=== PATIENT | male | born 1955 | race Caucasian/White ===

== ENCOUNTER 2018-07-24 05:09 | Inpatient (IN) | payer MEDICARE, OTHER ==
[2018-07-20 14:23] LABS: CLARITY,URINE CLEAR (Clear); COLOR,URINE STRAW (Yellow); GLUCOSE, URINE >=1000 mg/dl (Neg); KETONES,URINE NEGATIVE (Neg); LEUKOCYTE ESTERASE ,URINE NEGATIVE (Neg); NITRITES, URINE NEGATIVE (Neg); OCCULT BLOOD,URINE NEGATIVE (Neg); PH,URINE 5.5 (4.8-8.0); PROTEIN,URINE NEGATIVE (Neg); UROBILINOGEN,URINE 0.2 E.U/dL (0.2-1.0)
[2018-07-20 14:32] LABS: UA COLLECTION TYPE VOIDED
[2018-07-20 14:33] LABS: BACTERIA,URINE FEW /HPF (Neg); RBC,URINE 0-2 /HPF (0-2); SQUAMOUS EPITHELIAL CELL,UR FEW /LPF (FEW); WBC,URINE 0-4 /HPF (0-4)
[2018-07-20 16:07] LABS: BASOPHILS # (AUTO) 0.1 X10'3 (0-0.2); BASOPHILS % (AUTO) 0.5 % (0-1); EOSINOPHILS # (AUTO) 0.3 X10'3 (0-0.9); EOSINOPHILS % (AUTO) 2.3 % (0-6); LYMPHOCYTES # (AUTO) 3.2 X10'3 (1.1-4.8); LYMPHOCYTES % (AUTO) 28.2 % (21-51); MEAN CORPUSCULAR HEMOGLOBIN 29.2 PG (27.0-31.0); MEAN CORPUSCULAR VOLUME 91.1 FL (78-98); MEAN PLATELET VOLUME 10.1 FL (7.4-10.4); MONOCYTES # (AUTO) 1.8 X10'3 (0-0.9); MONOCYTES % (AUTO) 15.9 % (2-12); NEUTROPHILS % (AUTO) 53.1 % (42-75); PRE OP HEMATOCRIT 44.5 % (42.0-52.0); PRE OP HEMOGLOBIN 14.2 g/dL (14.0-17.9); PRE OP PLATELET COUNT 363 X10'3 (140-440); RED BLOOD COUNT 4.88 X10'6 (4.70-6.10); RED CELL DISTRIBUTION WIDTH 15.9 % (11.5-14.5)
[2018-07-20 16:20] LABS: HEMOGLOBIN A1C 11.5 % (4.5-6.2)
[2018-07-20 16:26] LABS: ALBUMIN 3.5 G/DL (3.4-5.0); ALBUMIN/GLOBULIN RATIO 0.8 (1.1-1.5); ALKALINE PHOSPHATASE 94 IU/L (46-116); BLOOD UREA NITROGEN 23 MG/DL (7-18); BUN/CREATININE RATIO 31.9 (5.4-32.0); CALCIUM 9.2 MG/DL (8.5-10.1); CHLORIDE 101 MMOL/L (99-107); CREATININE 0.72 MG/DL (0.60-1.10); PRE OP ALT 22 U/L (30-65); PRE OP ANION GAP 8 (8-16); PRE OP AST 15 U/L (10-37); PRE OP BILIRUB, TOTAL 0.7 MG/DL (0.0-1.0); PRE OP POTASSIUM 4.1 MMOL/L (3.4-5.1); PRE OP SODIUM 136 MMOL/L (135-145); TOTAL CARBON DIOXIDE 27.5 MMOL/L (24-32); TOTAL PROTEIN 7.9 G/DL (6.4-8.2); eGFR > 90 ML/MIN
[2018-07-20 16:27] LABS: PRE OP GLUCOSE 223 MG/DL (70-104)
[2018-07-20 16:33] LABS: PRE OP PROTIME 10.3 SECONDS (9.0-12.0)
[~2018-07-24] VITALS: Ht 162.6 cm; Wt 106.2 kg
[2018-07-24] VITALS (18 sets, daily range): BP systolic 104–153; BP diastolic 41–81
[~2018-07-24 05:09] MED LIST: ATOR40TA PO; CLOP75TA33 PO; ESCI20TA38 PO; FENO160T37 PO; FURO-150 PO; INSU100I31 SQ; LIDOcaine 1% (10mg/ml) 2ml vial ONE; METF500T7 PO; METO50TA17 PO; PANT-47 PO; PIOG45TA65 PO; POTA20TA10 PO; SOTA80TA73 PO; ringers solution, lacted 1,000 ML IV SCH
[2018-07-24] MEDS ORDERED: ceFAZolin 1000mg inj ONE (05:12)
[2018-07-24] MEDS ORDERED: metoprolol tartrate 12.5mg (1/2 tablet) PO ONE (05:30)
[2018-07-24] MEDS ORDERED: LORazepam 2 mg/ml vial IV ONE (05:30)
[2018-07-24] MEDS ORDERED: mupirocin 2% nasal ointment 1gm UD NS ONE (05:30)
[2018-07-24] MEDS ORDERED: DOCUMENT DATE & TIME OF BETA-BLOCKER PO ONE (05:30)
[2018-07-24] MEDS ORDERED: cefazolin/dext.iso 2gm/100 ML IV ONE (05:30)
[2018-07-24] MEDS ORDERED: famotidine 20mg tablet PO ONE (05:30)
[2018-07-24] MEDS ORDERED: dextrose 50%-water 50ml dispensing syringe IV PRN ×2 (05:30→11:30)
[2018-07-24] MEDS ORDERED: vancomycin inj 1,500 MG in normal saline 300ml IV soln IV ONE (05:30)
[2018-07-24] MEDS: insulin regular, human 100 UNIT in normal saline 100ml IV soln 99 ML IV SCH ×2 (05:30)
[2018-07-24] MEDS ORDERED: LIDOcaine 1% (10mg/ml) 2ml vial ONE (05:51)
[2018-07-24] MEDS ORDERED: nitroGLYCERIN in D5W 50mg/250ml (Tridil) infusion IV ONE (06:45)
[2018-07-24] MEDS ORDERED: sevoflurane 250ml liquid IH ONE (06:45)
[2018-07-24] MEDS ORDERED: protamine sulf. 10mg/ml inj. IV ONE (06:45)
[2018-07-24] MEDS ORDERED: MIDAZolam 1mg/ml 10ml vial ONE (06:54)
[2018-07-24] MEDS ORDERED: fentaNYL /PF 50mcg/ml 5ml ampule ONE ×5 (06:55→08:49)
[2018-07-24] MEDS ORDERED: phenylephrine 10mg/ml inj. ONE ×2 (06:57→12:00)
[2018-07-24] MEDS ORDERED: pancuronium br 1mg/ml inj IV ONE (06:57)
[2018-07-24] MEDS ORDERED: etomidate 2mg/ml inj. ONE (06:57)
[2018-07-24 08:16] LABS: ABG BASE EXCESS -2.2 mmol/L (-2.0-3.0); ABG HCO3 22.6 mmol/L (22.0-26.0); ABG OXYGEN SATURATION 99.1 % (95-98); ABG PCO2 38.8 mmHg (35.0-45.0); ABG PH 7.383 (7.350-7.450); ABG PO2 200.2 mmHg (60.0-100.0); CL (ABG) 97 mmol/L (99-107); FCOHb 0.8 % (0.5-1.5); FMetHb 0.1 % (0.3-1.12); FO2Hb 98.2 % (94-100); GLUCOSE (ABG) 277 mg/dl (70-105); IONIZED CA (ABG) 1.13 mmol/L (1.03-1.32); K (ABG) 3.8 mmol/L (3.3-5.1); NA (ABG) 128 mmol/L (135-145); TOTAL HEMOGLOBIN 13.2 G/dl (14.0-18.0)
[2018-07-24] MEDS ORDERED: papaverine 30 mg/ml 2ml inj. IA ONE (08:26)
[2018-07-24] MEDS ORDERED: heparin 10,000 units/1 ML INJ IR ONE (08:26)
[2018-07-24 08:46] LABS: ACT @ 1.70 U 228 SEC (193-297); ACT @ 2.84 U 313 SEC (260-420); BASELINE ACT 114 SEC (101-148)
[2018-07-24 08:50] LABS: ABG HCO3 26.2 mmol/L (22.0-26.0); ABG OXYGEN SATURATION 93.9 % (95-98); ABG PCO2 (T) 43.5 mmHg (35.0-48.0); ABG PH (T) 7.397 (7.350-7.450); ABG PO2 (T) 71.1 mmHg (83-108); ALLEN'S TEST Positive; FCOHb 1.2 % (0.5-1.5); FMetHb 0.1 % (0.3-1.12); FO2Hb 92.7 % (94-100); TOTAL HEMOGLOBIN 14.5 G/dl (14.0-18.0)
[2018-07-24 09:20] LABS: ABG BASE EXCESS 3.2 mmol/L (-2.0-3.0); ABG HCO3 28.6 mmol/L (22.0-26.0); ABG OXYGEN SATURATION 99.5 % (95-98); ABG PCO2 47.2 mmHg (35.0-45.0); CL (ABG) 101 mmol/L (99-107); FCOHb 0.5 % (0.5-1.5); FMetHb 0.3 % (0.3-1.12); FO2Hb 98.7 % (94-100); GLUCOSE (ABG) 207 mg/dl (70-105); IONIZED CA (ABG) 1.04 mmol/L (1.03-1.32); K (ABG) 4.5 mmol/L (3.3-5.1); NA (ABG) 133 mmol/L (135-145); TOTAL HEMOGLOBIN 10.4 G/dl (14.0-18.0)
[2018-07-24 09:35] LABS: ABG BASE EXCESS VENOUS 2.9 mmol/L; ABG HCO3 VENOUS 29.1 mmol/L; ABG PCO2 VENOUS 51.9 mmHg; ABG PO2 VENOUS 48.4 mmHg; CL (ABG) 102 mmol/L (99-107); FCOHb VENOUS 1.2 %; FHHb VENOUS 16.3 %; FMetHb VENOUS 0.3 %; FO2Hb VENOUS 82.2 %; GLUCOSE (ABG) 207 mg/dl (70-105); IONIZED CA (ABG) 1.09 mmol/L (1.03-1.32); K (ABG) 4.1 mmol/L (3.3-5.1); NA (ABG) 135 mmol/L (135-145); TOTAL HEMOGLOBIN 10.9 G/dl (14.0-18.0)
[2018-07-24 10:00] LABS: ABG BASE EXCESS 1.7 mmol/L (-2.0-3.0); ABG HCO3 25.3 mmol/L (22.0-26.0); ABG OXYGEN SATURATION 99.5 % (95-98); ABG PH 7.465 (7.350-7.450); CL (ABG) 103 mmol/L (99-107); FCOHb 0.8 % (0.5-1.5); FMetHb 0.3 % (0.3-1.12); FO2Hb 98.4 % (94-100); GLUCOSE (ABG) 185 mg/dl (70-105); IONIZED CA (ABG) 1.09 mmol/L (1.03-1.32); K (ABG) 3.9 mmol/L (3.3-5.1); NA (ABG) 136 mmol/L (135-145); TOTAL HEMOGLOBIN 10.7 G/dl (14.0-18.0)
[2018-07-24 10:21] LABS: ABG BASE EXCESS 3.2 mmol/L (-2.0-3.0); ABG HCO3 27.9 mmol/L (22.0-26.0); ABG OXYGEN SATURATION 99.1 % (95-98); ABG PCO2 43.3 mmHg (35.0-45.0); ABG PH 7.427 (7.350-7.450); ABG PO2 318.1 mmHg (60.0-100.0); CL (ABG) 100 mmol/L (99-107); FCOHb 0.4 % (0.5-1.5); FMetHb 0.2 % (0.3-1.12); FO2Hb 98.5 % (94-100); GLUCOSE (ABG) 167 mg/dl (70-105); IONIZED CA (ABG) 1.47 mmol/L (1.03-1.32); K (ABG) 4.4 mmol/L (3.3-5.1); NA (ABG) 131 mmol/L (135-145); TOTAL HEMOGLOBIN 9.6 G/dl (14.0-18.0)
[2018-07-24 10:45] LABS: ABG BASE EXCESS VENOUS 3.2 mmol/L; ABG HCO3 VENOUS 28.3 mmol/L; ABG PCO2 VENOUS 45.5 mmHg; ABG PO2 VENOUS 38.3 mmHg; CL (ABG) 103 mmol/L (99-107); FCOHb VENOUS 0.9 %; FMetHb VENOUS 0.4 %; FO2Hb VENOUS 73.7 %; GLUCOSE (ABG) 165 mg/dl (70-105); IONIZED CA (ABG) 1.24 mmol/L (1.03-1.32); NA (ABG) 136 mmol/L (135-145); TOTAL HEMOGLOBIN 10.3 G/dl (14.0-18.0)
[2018-07-24] MEDS ORDERED: DOPamine 400mg/D5W 250ml 250 ML IV PRN (11:29)
[2018-07-24] MEDS ORDERED: niCARDipine-NS 40mg/200ml IVPB 200 ML IV PRN (11:29)
[2018-07-24] MEDS: sodium chloride 0.45% 1,000 ML IV SCH (11:29)
[2018-07-24] MEDS ORDERED: nitroGLYCERIN-Tridil 50MG/D5W 250 ML IV PRN (11:29)
[2018-07-24] MEDS ORDERED: magnesium 4gm in 100ml NS 100 ML IV PRN (11:30)
[2018-07-24] MEDS ORDERED: magnesium 2GM in 50ml NS 50 ML IV PRN (11:30)
[2018-07-24] MEDS ORDERED: ondansetron/PF 4mg/2ml inj IV PRN (11:30)
[2018-07-24] MEDS ORDERED: acetaminophen 325mg tablet PO PRN (11:30)
[2018-07-24] MEDS ORDERED: pantoprazole 40 MG vial IV ONE (11:30)
[2018-07-24] MEDS ORDERED: insulin regular, human inj. 100 UNITS in normal saline 100ml IV soln 100 ML IV SCH ×2 (11:30)
[2018-07-24] MEDS ORDERED: normal saline 250ml IV soln 250 ML IV PRN (11:30)
[2018-07-24] MEDS ORDERED: sodium phosphate inj. 15 MMOL in dextrose 5%-water 150 ML IV PRN (11:30)
[2018-07-24] MEDS ORDERED: metoclopramide 5 mg/ml inj IV PRN (11:30)
[2018-07-24] MEDS ORDERED: magnesium hydroxide 30ml (MOM) UD suspension PO PRN (11:30)
[2018-07-24] MEDS ORDERED: Neutra Phos packet PO PRN (11:30)
[2018-07-24] MEDS ORDERED: albumin (Human) 5% 250ml 250 ML IV PRN (11:30)
[2018-07-24] MEDS ORDERED: potassium Cl 20mEq/100mL bag 100 ML IV PRN ×2 (11:30)
[2018-07-24] MEDS ORDERED: sodium phosphate inj. 30 MMOL in dextrose 5%-water 250 ML IV PRN (11:30)
[2018-07-24 11:46] LABS: ABG BASE EXCESS 0.9 mmol/L (-2.0-3.0); ABG OXYGEN SATURATION 98.9 % (95-98); ABG PCO2 (T) 43.5 mmHg (35.0-48.0); ABG PH (T) 7.395 (7.350-7.450); ABG PO2 (T) 184.4 mmHg (83-108); FCOHb 0.9 % (0.5-1.5); FMetHb 0.4 % (0.3-1.12); FO2Hb 97.6 % (94-100); MINUTE VOLUME 6 L/min; PEEP 5 cm H2O; RESPIRATORY RATE 12 b/min; RESPIRATORY RATE (OBSERVED) 12 b/min; TIDAL VOLUME 500 mL; TOTAL HEMOGLOBIN 13.6 G/dl (14.0-18.0)
[2018-07-24 11:57] LABS: BASOPHILS # (AUTO) 0.1 X10'3 (0-0.2); BASOPHILS % (AUTO) 0.3 % (0-1); EOSINOPHILS # (AUTO) 0.3 X10'3 (0-0.9); EOSINOPHILS % (AUTO) 1.4 % (0-6); HEMATOCRIT 40.1 % (42.0-52.0); HEMOGLOBIN 12.8 g/dl (14.0-17.9); LYMPHOCYTES # (AUTO) 2.4 X10'3 (1.1-4.8); LYMPHOCYTES % (AUTO) 12.4 % (21-51); MEAN CORPUSCULAR HEMOGLOBIN 29.1 PG (27.0-31.0); MEAN CORPUSCULAR HGB CONC 31.8 % (33.0-36.5); MEAN CORPUSCULAR VOLUME 91.3 FL (78-98); MEAN PLATELET VOLUME 9.3 FL (7.4-10.4); MONOCYTES # (AUTO) 3.2 X10'3 (0-0.9); MONOCYTES % (AUTO) 16.3 % (2-12); NEUTROPHILS # (AUTO) 13.7 X10'3 (1.8-7.7); NEUTROPHILS % (AUTO) 69.6 % (42-75); PLATELET COUNT 155 X10'3 (140-440); RED CELL DISTRIBUTION WIDTH 16.1 % (11.5-14.5); WHITE BLOOD COUNT 19.7 X10'3 (4.5-11.0)
[2018-07-24] MEDS ORDERED: heparin 1,000 units/ml 10ml inj ONE (12:00)
[2018-07-24] MEDS ORDERED: potassium Cl 2 mEq/ml inj IV ONE (12:00)
[2018-07-24] MEDS ORDERED: methylPREDNISolone sod. succ. 500mg inj ONE (12:00)
[2018-07-24] MEDS ORDERED: heparin 10,000 units/1 ML INJ ONE ×2 (12:00)
[2018-07-24] MEDS ORDERED: aminocaproic acid 250 MG/1 ML inj. ONE ×2 (12:00)
[2018-07-24] MEDS ORDERED: LIDOcaine 2% (20 mg/ml) 5ml cardiac syringe ONE (12:00)
[2018-07-24] MEDS ORDERED: calcium chloride 100 MG/1 ML inj IV ONE (12:00)
[2018-07-24] MEDS ORDERED: sodium bicarbonate (8.4%) 1 mEq/ml syringe ONE (12:00)
[2018-07-24] MEDS ORDERED: papaverine 30 mg/ml 2ml inj. ONE (12:00)
[2018-07-24] MEDS ORDERED: albumin (Human) 5% 250ml BOTTLE IV ONE (12:00)
[2018-07-24] MEDS ORDERED: magnesium sulf 1 GM/2 ML ONE (12:00)
[2018-07-24 12:01] LABS: ALANINE AMINOTRANSFERASE 16 U/L (12-78); ALBUMIN 3.1 G/DL (3.4-5.0); ALBUMIN/GLOBULIN RATIO 1.2 (1.1-1.5); ALKALINE PHOSPHATASE 56 IU/L (46-116); ANION GAP 10 (8-16); ASPARTATE AMINO TRANSFERASE 29 U/L (10-37); BILIRUBIN,TOTAL 1.2 MG/DL (0.1-1.0); BLOOD UREA NITROGEN 18 MG/DL (7-18); BUN/CREATININE RATIO 25.4 (5.4-32.0); CALCIUM 8.3 MG/DL (8.5-10.1); CHLORIDE 105 MMOL/L (99-107); CREATININE 0.71 MG/DL (0.60-1.10); GLUCOSE 136 MG/DL (70-104); INR 1.2 INR; MAGNESIUM 2.8 MG/DL (1.5-2.4); PARTIAL THROMBOPLASTIN TIME 26 SECONDS (22-32); PHOSPHORUS 1.7 MG/DL (2.3-4.5); POTASSIUM 3.5 MMOL/L (3.5-5.1); PROTHROMBIN TIME 11.9 SECONDS (9.0-12.0); SODIUM 142 MMOL/L (135-145); TOTAL PROTEIN 5.6 G/DL (6.4-8.2); eGFR > 90 ML/MIN
[2018-07-24 12:31] LABS: ANISOCYTOSIS 1+; BANDS% (MANUAL) 13 % (0-10); EOSINOPHILS % (MANUAL) 1 % (0-6); HYPOCHROMASIA 1+; LYMPHOCYTES % (MANUAL) 12 % (21-51); MONOCYTES % (MANUAL) 14 % (2-12); NEUTROPHILS % (MANUAL) 60 % (42-75); PLATELET ESTIMATE NORMAL; POIKILOCYTOSIS 1+; POLYCHROMASIA FEW; TOTAL CELLS COUNTED 100
[2018-07-24 12:32] LABS: ACANTHOCYTES FEW; SCHISTOCYTES FEW; TARGET CELLS FEW
[2018-07-24] MEDS ORDERED: potassium phosphate inj 15 MMOL in normal saline 250ml IV soln 245 ML IV ONE (12:35)
[2018-07-24] MEDS: morphine 4 MG/ML inj SYRINge IV PRN ×5 (12:36→23:56)
[2018-07-24] MEDS: potassium Cl 20mEq/100mL bag 100 ML IV PRN ×2 (12:38→13:59)
--- NOTE | 2018-07-24 12:42 | NUR ---
CABG consult received. Will need ed once stable post-op prior to d/c. Addendum: 07/24/18 at [address] Amended: Links added.
[2018-07-24] MEDS: insulin Lispro (HumaLOG) vial - multi-dose SQ SCH ×2 (12:48→12:49)
[2018-07-24 12:51] LABS: ABG BASE EXCESS 0.1 mmol/L (-2.0-3.0); ABG HCO3 24.1 mmol/L (22.0-26.0); ABG OXYGEN SATURATION 98.7 % (95-98); ABG PCO2 (T) 37.3 mmHg (35.0-48.0); ABG PH (T) 7.429 (7.350-7.450); ABG PO2 (T) 170.9 mmHg (83-108); FCOHb 0.5 % (0.5-1.5); FMetHb 0.1 % (0.3-1.12); FO2Hb 98.1 % (94-100); MINUTE VOLUME 8 L/min; PEEP 5 cm H2O; RESPIRATORY RATE 12 b/min; RESPIRATORY RATE (OBSERVED) 12 b/min; TIDAL VOLUME 650 mL; TOTAL HEMOGLOBIN 13.6 G/dl (14.0-18.0)
[2018-07-24] MEDS: ceFAZolin 1GM/D5W- ADD-VANTAGE 50 ML IV SCH (16:22)
[2018-07-24 17:00] LABS: ABG BASE EXCESS -1.4 mmol/L (-2.0-3.0); ABG HCO3 24.2 mmol/L (22.0-26.0); ABG OXYGEN SATURATION 96.9 % (95-98); ABG PCO2 (T) 43.8 mmHg (35.0-48.0); ABG PO2 (T) 93.7 mmHg (83-108); FCOHb 0.9 % (0.5-1.5); FMetHb 0.2 % (0.3-1.12); FO2Hb 95.8 % (94-100); MINUTE VOLUME 8 L/min; PEEP 5 cm H2O; RESPIRATORY RATE (OBSERVED) 20 b/min; TOTAL HEMOGLOBIN 13.3 G/dl (14.0-18.0)
[2018-07-24 18:37] LABS: BASOPHILS # (AUTO) 0.1 X10'3 (0-0.2); BASOPHILS % (AUTO) 0.5 % (0-1); EOSINOPHILS % (AUTO) 0 % (0-6); HEMATOCRIT 39.9 % (42.0-52.0); HEMOGLOBIN 12.9 g/dl (14.0-17.9); LYMPHOCYTES % (AUTO) 6.4 % (21-51); MEAN CORPUSCULAR HEMOGLOBIN 29.6 PG (27.0-31.0); MEAN CORPUSCULAR HGB CONC 32.4 % (33.0-36.5); MEAN CORPUSCULAR VOLUME 91.2 FL (78-98); MONOCYTES # (AUTO) 1.8 X10'3 (0-0.9); MONOCYTES % (AUTO) 11.3 % (2-12); NEUTROPHILS # (AUTO) 13.3 X10'3 (1.8-7.7); NEUTROPHILS % (AUTO) 81.8 % (42-75); PLATELET COUNT 161 X10'3 (140-440); RED BLOOD COUNT 4.38 X10'6 (4.70-6.10); RED CELL DISTRIBUTION WIDTH 15.9 % (11.5-14.5); WHITE BLOOD COUNT 16.2 X10'3 (4.5-11.0)
--- NOTE | 2018-07-24 18:45 | NUR ---
Received report on patient in room 2043 from Nela, RN. Pt awake and alert, slightly confused at times, speech is clear, denies numbness and tingling, moving all extremities. Insulin infusing at 15 per insulin gtt protocol to keep glucose levels between 110 and 150. Pt on 4L nasal cannula maintaining O2 sat greater than 93. Chest tubes to suction at 20 cm with serosanguinous output, symmetrical rise and fall of chest cavity with no crepitus noted, dressings are clean, dry, and intact. On camera storage clerk with arterial line, CVP, and PA line pressures monitored. Gutierres cath to gravity drainage with optimal urine output. Bowel sounds hypoactive, pt only tolerating ice chips at this time, will advance to small sips of water as tolerated. See assessment record.
[2018-07-24 18:53] LABS: ALBUMIN 3.5 G/DL (3.4-5.0); ANION GAP 11 (8-16); BLOOD UREA NITROGEN 18 MG/DL (7-18); BUN/CREATININE RATIO 23.4 (5.4-32.0); CHLORIDE 107 MMOL/L (99-107); CREATININE 0.77 MG/DL (0.60-1.10); GLUCOSE 161 MG/DL (70-104); MAGNESIUM 2.1 MG/DL (1.5-2.4); PHOSPHORUS 3.1 MG/DL (2.3-4.5); POTASSIUM 4.3 MMOL/L (3.5-5.1); SODIUM 143 MMOL/L (135-145); TOTAL CARBON DIOXIDE 25.5 MMOL/L (24-32); eGFR > 90 ML/MIN
[2018-07-24] MEDS: docusate sod 100mg capsule PO SCH (19:50)
[2018-07-24] MEDS: mupirocin 2% nasal ointment 1gm UD NS SCH (19:53)
[2018-07-24] MEDS: vancomycin/NS 1 GM ADD-VANTAGE 250 ML IV SCH (19:53)
--- NOTE | 2018-07-24 21:15 | NUR ---
Pt now tolerating sips of water
--- NOTE | 2018-07-24 22:35 | NUR ---
Pt getting hypertensive into the 140-150's systolically, re-started Nitro through R IJ CVL to maintain systolic <140.
[2018-07-25] VITALS (24 sets, daily range): BP systolic 101–162; BP diastolic 56–91
[2018-07-25] MEDS: ceFAZolin 1GM/D5W- ADD-VANTAGE 50 ML IV SCH ×4 (00:08→23:54)
[2018-07-25] MEDS: morphine 4 MG/ML inj SYRINge IV PRN ×5 (00:48→11:02)
[2018-07-25] MEDS: insulin regular, human 100 UNIT in normal saline 100ml IV soln 99 ML IV SCH ×10 (01:01→23:51)
[2018-07-25 03:20] LABS: BASOPHILS % (AUTO) 0.2 % (0-1); EOSINOPHILS % (AUTO) 0 % (0-6); HEMATOCRIT 38.3 % (42.0-52.0); HEMOGLOBIN 12.5 g/dl (14.0-17.9); LYMPHOCYTES # (AUTO) 1.4 X10'3 (1.1-4.8); LYMPHOCYTES % (AUTO) 7.2 % (21-51); MEAN CORPUSCULAR HEMOGLOBIN 29.6 PG (27.0-31.0); MEAN CORPUSCULAR HGB CONC 32.5 % (33.0-36.5); MEAN CORPUSCULAR VOLUME 90.9 FL (78-98); MEAN PLATELET VOLUME 10.1 FL (7.4-10.4); MONOCYTES # (AUTO) 3.4 X10'3 (0-0.9); MONOCYTES % (AUTO) 17.1 % (2-12); NEUTROPHILS # (AUTO) 15.1 X10'3 (1.8-7.7); NEUTROPHILS % (AUTO) 75.5 % (42-75); PLATELET COUNT 159 X10'3 (140-440); RED BLOOD COUNT 4.22 X10'6 (4.70-6.10); RED CELL DISTRIBUTION WIDTH 15.9 % (11.5-14.5)
[2018-07-25 03:34] LABS: ALANINE AMINOTRANSFERASE 20 U/L (12-78); ALBUMIN 3.3 G/DL (3.4-5.0); ALBUMIN/GLOBULIN RATIO 1.1 (1.1-1.5); ALKALINE PHOSPHATASE 40 IU/L (46-116); ANION GAP 7 (8-16); ASPARTATE AMINO TRANSFERASE 65 U/L (10-37); BILIRUBIN,TOTAL 1.3 MG/DL (0.1-1.0); BLOOD UREA NITROGEN 15 MG/DL (7-18); BUN/CREATININE RATIO 20.8 (5.4-32.0); CHLORIDE 108 MMOL/L (99-107); CREATININE 0.72 MG/DL (0.60-1.10); GLUCOSE 123 MG/DL (70-104); PHOSPHORUS 3.4 MG/DL (2.3-4.5); POTASSIUM 4.1 MMOL/L (3.5-5.1); SODIUM 142 MMOL/L (135-145); TOTAL PROTEIN 6.3 G/DL (6.4-8.2); eGFR > 90 ML/MIN
[2018-07-25 03:49] LABS: INR 1.1 INR; PARTIAL THROMBOPLASTIN TIME 26 SECONDS (22-32); PROTHROMBIN TIME 11.1 SECONDS (9.0-12.0)
[2018-07-25 04:04] LABS: TOTAL CELLS COUNTED 100
[2018-07-25 04:06] LABS: ANISOCYTOSIS 1+; PLATELET ESTIMATE NORMAL
[2018-07-25 04:07] LABS: BURR CELLS FEW; SCHISTOCYTES FEW; TARGET CELLS FEW
[2018-07-25] MEDS: HYDROcodone/acetaminophen 10/325mg tab PO PRN ×3 (05:08→17:09)
--- NOTE | 2018-07-25 05:45 | NUR ---
Pt up in chair for morning X-ray, tolerated well
--- NOTE | 2018-07-25 06:12 | NUR ---
Problems reprioritized. Patient report given, questions answered & plan of care reviewed with EFREN Pascal.
[2018-07-25] MEDS ORDERED: dextrose 50%-water 50ml dispensing syringe IV PRN ×2 (07:55)
[2018-07-25] MEDS ORDERED: glucagon, human recombinant 1mg kit SUBCUT PRN (07:55)
[2018-07-25] MEDS ORDERED: dextrose ORAL solution 15 GM/59 ML bottle PO PRN ×2 (07:55)
[2018-07-25] MEDS ORDERED: metoprolol tartrate 12.5mg (1/2 tablet) PO SCH (08:00)
[2018-07-25] MEDS ORDERED: atorvastatin 10mg tablet PO SCH (08:00)
[2018-07-25] MEDS ORDERED: escitalopram 20mg tablet PO SCH (08:00)
[2018-07-25] MEDS: citalopram 20mg tablet PO SCH (09:21)
[2018-07-25] MEDS: atorvastatin 20mg tablet PO SCH (09:21)
[2018-07-25] MEDS: docusate sod 100mg capsule PO SCH ×2 (09:22→20:52)
[2018-07-25] MEDS: aspirin 325mg tablet, delayed-release (Ecotrin) PO SCH (09:22)
[2018-07-25] MEDS: metoprolol tartrate 50mg tablet PO SCH ×2 (09:22→20:51)
[2018-07-25] MEDS: vancomycin/NS 1 GM ADD-VANTAGE 250 ML IV SCH ×2 (09:22→20:53)
[2018-07-25] MEDS: mupirocin 2% nasal ointment 1gm UD NS SCH ×2 (09:22→21:12)
[2018-07-25] MEDS: insulin Lispro (HumaLOG) vial - multi-dose SQ SCH ×2 (09:37→13:33)
--- NOTE | 2018-07-25 14:17 | NUR ---
DM/CABG consult. Patient has h/o DM with A1c of 11.5; Patient is s/p CABG, replacement aortic valve with grafting and ligation of atrial appendage on 07/24. Diet was advanced to no concentrated sweets and carb controlled. Patient is confused s/p extubation and not appropriate for bedside education today. When alert patient will need both written DM and post CABG education handout with verbal review. Recommend: 1. Continue carb controlled, no concentrated sweets diet 2. Continue bowel care 3. Provide written and verbal education prior to discharge 4. Weight per rx Addendum: 07/25/18 at [address] Amended: Links added.
[2018-07-25] MEDS ORDERED: insulin glargine (Lantus) pen - multi-dose SQ SCH ×2 (21:00)
[2018-07-25] MEDS: insulin glargine (Lantus) pen - multi-dose SQ SCH (21:21)
[2018-07-25] MEDS ORDERED: amiodarone 150mg/dext, iso-os 100 ML IV ONE (22:00)
[2018-07-25] MEDS ORDERED: amiodarone/D5 360MG/200ML BAG 200 ML IV ONE (22:02)
[2018-07-25] MEDS: amiodarone/D5 360MG/200ML BAG 200 ML IV SCH (22:16)
[2018-07-26] VITALS (22 sets, daily range): BP systolic 94–138; BP diastolic 51–77
[2018-07-26] MEDS: insulin regular, human 100 UNIT in normal saline 100ml IV soln 99 ML IV SCH ×24 (00:43→22:35)
[2018-07-26] MEDS: HYDROcodone/acetaminophen 10/325mg tab PO PRN ×3 (01:59→22:39)
[2018-07-26] MEDS: morphine 4 MG/ML inj SYRINge IV PRN ×2 (02:45→05:18)
[2018-07-26 02:59] LABS: HEMATOCRIT 38.8 % (42.0-52.0); HEMOGLOBIN 12.1 g/dl (14.0-17.9); MEAN CORPUSCULAR HEMOGLOBIN 28.6 PG (27.0-31.0); MEAN CORPUSCULAR HGB CONC 31.3 % (33.0-36.5); MEAN CORPUSCULAR VOLUME 91.5 FL (78-98); MEAN PLATELET VOLUME 10.5 FL (7.4-10.4); PLATELET COUNT 154 X10'3 (140-440); RED BLOOD COUNT 4.24 X10'6 (4.70-6.10); RED CELL DISTRIBUTION WIDTH 15.9 % (11.5-14.5)
[2018-07-26 03:07] LABS: WHITE BLOOD COUNT 25.3 X10'3 (4.5-11.0)
[2018-07-26 03:15] LABS: ALBUMIN 3.1 G/DL (3.4-5.0); ANION GAP 7 (8-16); BLOOD UREA NITROGEN 13 MG/DL (7-18); BUN/CREATININE RATIO 20.3 (5.4-32.0); CALCIUM 8.3 MG/DL (8.5-10.1); CHLORIDE 101 MMOL/L (99-107); CREATININE 0.64 MG/DL (0.60-1.10); GLUCOSE 120 MG/DL (70-104); MAGNESIUM 2.1 MG/DL (1.5-2.4); PHOSPHORUS 2.4 MG/DL (2.3-4.5); POTASSIUM 4.5 MMOL/L (3.5-5.1); SODIUM 138 MMOL/L (135-145); TOTAL CARBON DIOXIDE 30.5 MMOL/L (24-32); eGFR > 90 ML/MIN
[2018-07-26 03:17] LABS: ANISOCYTOSIS 1+; BURR CELLS FEW; PLATELET ESTIMATE NORMAL; SCHISTOCYTES FEW; TARGET CELLS FEW; TOTAL CELLS COUNTED 100
[2018-07-26 03:18] LABS: LARGE PLATELETS FEW
[2018-07-26] MEDS: amiodarone/D5 360MG/200ML BAG 200 ML IV SCH ×3 (04:19→16:25)
--- NOTE | 2018-07-26 06:00 | NUR ---
Patient in room ICU 2043. I have received report from Meron SCHWARTZ and had the opportunity to ask questions and assume patient care. Addendum: 07/26/18 at 1246 by Prateek Henry RN Report received from Herberth SCHWARTZ not Meron SCHWARTZ
[2018-07-26] MEDS ORDERED: amiodarone 50MG/ML inj IV ONE (07:00)
[2018-07-26] MEDS ORDERED: furosemide 40mg/4ml inj IV ONE (07:00)
[2018-07-26] MEDS ORDERED: amiodarone 150mg/dext, iso-os 100 ML IV ONE (07:10)
[2018-07-26] MEDS: insulin glargine (Lantus) pen - multi-dose SQ SCH ×3 (08:00→19:38)
[2018-07-26] MEDS: mupirocin 2% nasal ointment 1gm UD NS SCH (08:39)
[2018-07-26] MEDS: metoprolol tartrate 50mg tablet PO SCH ×2 (08:40→19:43)
[2018-07-26] MEDS: aspirin 325mg tablet, delayed-release (Ecotrin) PO SCH (08:40)
[2018-07-26] MEDS: citalopram 20mg tablet PO SCH (08:40)
[2018-07-26] MEDS: atorvastatin 20mg tablet PO SCH (08:41)
[2018-07-26] MEDS: docusate sod 100mg capsule PO SCH ×2 (08:41→19:43)
[2018-07-26] MEDS: pantoprazole 40mg Tablet.DR PO SCH (08:42)
[2018-07-26] MEDS: sodium chloride 0.45% 1,000 ML IV SCH (11:36)
[2018-07-26] MEDS: insulin Lispro (HumaLOG) vial - multi-dose SQ SCH ×2 (13:26→19:39)
--- NOTE | 2018-07-26 17:31 | NUR ---
Paco ALVARES called and informed pt with 38.1 T. Pt post op day 2 and no orders were given. Pt requesting pm leg cramps. Pt ok to bring in home meds for this. Pt unsure if he can get someone to bring them in.
--- NOTE | 2018-07-26 18:20 | NUR ---
Problems reprioritized. Patient report given, questions answered & plan of care reviewed with Herberth SCHWARTZ.
[2018-07-27] VITALS (18 sets, daily range): BP systolic 102–145; BP diastolic 51–98
[2018-07-27] MEDS: insulin regular, human 100 UNIT in normal saline 100ml IV soln 99 ML IV SCH ×6 (00:23→05:09)
[2018-07-27 03:06] LABS: HEMATOCRIT 36.7 % (42.0-52.0); HEMOGLOBIN 11.8 g/dl (14.0-17.9); MEAN CORPUSCULAR HEMOGLOBIN 29.2 PG (27.0-31.0); MEAN CORPUSCULAR HGB CONC 32.1 % (33.0-36.5); PLATELET COUNT 149 X10'3 (140-440); RED BLOOD COUNT 4.04 X10'6 (4.70-6.10); RED CELL DISTRIBUTION WIDTH 16.6 % (11.5-14.5); WHITE BLOOD COUNT 22.3 X10'3 (4.5-11.0)
[2018-07-27 03:13] LABS: ALBUMIN 2.9 G/DL (3.4-5.0); ANION GAP 6 (8-16); BLOOD UREA NITROGEN 17 MG/DL (7-18); BUN/CREATININE RATIO 25.8 (5.4-32.0); CALCIUM 8.5 MG/DL (8.5-10.1); CHLORIDE 100 MMOL/L (99-107); CREATININE 0.66 MG/DL (0.60-1.10); GLUCOSE 154 MG/DL (70-104); MAGNESIUM 1.8 MG/DL (1.5-2.4); PHOSPHORUS 2.9 MG/DL (2.3-4.5); POTASSIUM 4.1 MMOL/L (3.5-5.1); SODIUM 138 MMOL/L (135-145); TOTAL CARBON DIOXIDE 31.7 MMOL/L (24-32); eGFR > 90 ML/MIN
[2018-07-27 03:40] LABS: PLATELET ESTIMATE NORMAL; TOTAL CELLS COUNTED 100
[2018-07-27 03:41] LABS: ACANTHOCYTES FEW; ANISOCYTOSIS 1+; BURR CELLS 1+; GIANT PLATELET FEW; LARGE PLATELETS FEW; POLYCHROMASIA FEW
[2018-07-27 03:42] LABS: TARGET CELLS FEW
[2018-07-27] MEDS: amiodarone/D5 360MG/200ML BAG 200 ML IV SCH ×2 (04:58→06:31)
--- NOTE | 2018-07-27 06:30 | NUR ---
Patient in room ICU 2043. I have received report from Herberth Gamboa RN and had the opportunity to ask questions and assume patient care.
[2018-07-27] MEDS: insulin glargine (Lantus) pen - multi-dose SQ SCH ×2 (08:00→20:27)
[2018-07-27] MEDS: HYDROcodone/acetaminophen 10/325mg tab PO PRN ×3 (08:35→23:49)
[2018-07-27] MEDS ORDERED: magnesium Cl slow-release 64mg tablet PO PRN (08:40)
[2018-07-27] MEDS ORDERED: potassium Cl 20 mEq SR tablet PO PRN ×2 (08:40)
[2018-07-27] MEDS ORDERED: magnesium 4gm in 100ml NS 100 ML IV PRN (08:40)
[2018-07-27] MEDS ORDERED: potassium Cl 40MEQ/NS 500ml 500 ML IV PRN ×2 (08:40)
[2018-07-27] MEDS ORDERED: magnesium 2GM in 50ml NS 50 ML IV PRN (08:40)
[2018-07-27] MEDS ORDERED: magnesium citrate 296ml oral solution PO ONE (08:40)
[2018-07-27] MEDS ORDERED: magnesium 2GM in 50ml NS 50 ML IV ONE (09:00)
[2018-07-27] MEDS ORDERED: magnesium 4gm in 100ml NS 100 ML IV ONE (09:00)
[2018-07-27] MEDS: docusate sod 100mg capsule PO SCH ×2 (09:04→20:34)
[2018-07-27] MEDS: metoprolol tartrate 50mg tablet PO SCH ×2 (09:04→20:00)
[2018-07-27] MEDS: pantoprazole 40mg Tablet.DR PO SCH (09:04)
[2018-07-27] MEDS: aspirin 325mg tablet, delayed-release (Ecotrin) PO SCH (09:05)
[2018-07-27] MEDS: atorvastatin 20mg tablet PO SCH (09:05)
[2018-07-27] MEDS: amiodarone 200mg tablet PO SCH ×2 (09:05→20:34)
[2018-07-27] MEDS: citalopram 20mg tablet PO SCH (09:12)
--- NOTE | 2018-07-27 10:21 | NUR ---
Dressing from chest surgery and leg wrap to left removed. Incisions are clean and dry with slight pink appearance. Also, new 20gauge PIV inserted to right forearm in preparation to remove central line once Mag replacement is complete. Amio drip turned off after PO med administered.
[2018-07-27] MEDS: insulin Lispro (HumaLOG) vial - multi-dose SQ SCH ×3 (10:45→20:32)
--- NOTE | 2018-07-27 11:47 | NUR ---
URINE CATHETER REMOVED 1147 Urine Catheter removed. Patient tolerated well.
--- NOTE | 2018-07-27 13:25 | NUR ---
Report called to receiving nurse Art RN. Patient ambulated from ICU to ACCE unit to his room 316 Belongings . Special Issues communicated to receiving nurse. All medication sent with patient. Informed nurse that BS is 200, however no treatment given yet. And that mag citrate is in patient chart.
--- NOTE | 2018-07-27 13:29 | NUR ---
Pt arrived to room 316. Pt oriented to room, on monitor system, call light within reach. Pt lunch and mag citrate given.
--- NOTE | 2018-07-27 18:48 | NUR ---
Problems reprioritized. Patient report given, questions answered & plan of care reviewed with EFREN Hein.
[2018-07-27] MEDS: potassium Cl 20 mEq SR tablet PO SCH (20:00)
[2018-07-27] MEDS: magnesium Cl slow-release 64mg tablet PO SCH (20:21)
[2018-07-27 20:44] LABS: CREATININE 0.93 MG/DL (0.60-1.10); eGFR 82 ML/MIN
[2018-07-28 03:00] VITALS: BP 112/50
[2018-07-28 05:21] LABS: HEMOGLOBIN 11.5 g/dl (14.0-17.9); MEAN CORPUSCULAR HEMOGLOBIN 29.1 PG (27.0-31.0); MEAN CORPUSCULAR HGB CONC 31.9 % (33.0-36.5); MEAN CORPUSCULAR VOLUME 91.3 FL (78-98); MEAN PLATELET VOLUME 10.1 FL (7.4-10.4); PLATELET COUNT 186 X10'3 (140-440); RED BLOOD COUNT 3.95 X10'6 (4.70-6.10); RED CELL DISTRIBUTION WIDTH 15.8 % (11.5-14.5)
[2018-07-28 05:40] LABS: ALBUMIN 2.7 G/DL (3.4-5.0); ANION GAP 4 (8-16); BLOOD UREA NITROGEN 18 MG/DL (7-18); BUN/CREATININE RATIO 22.5 (5.4-32.0); CALCIUM 8.4 MG/DL (8.5-10.1); CHLORIDE 103 MMOL/L (99-107); CHOLESTEROL 85 MG/DL (0-200); GLUCOSE 73 MG/DL (70-104); HDL CHOLESTEROL 42 MG/DL (35-60); LDL CHOLESTEROL 39 MG/DL (50-100); MAGNESIUM 2.1 MG/DL (1.5-2.4); POTASSIUM 4.2 MMOL/L (3.5-5.1); SODIUM 141 MMOL/L (135-145); TOTAL CARBON DIOXIDE 34.1 MMOL/L (24-32); TRIGLYCERIDES 58 MG/DL (20-135); eGFR > 90 ML/MIN
[2018-07-28 06:00] VITALS: BP 107/57
[2018-07-28] MEDS: magnesium Cl slow-release 64mg tablet PO SCH ×2 (07:04→20:00)
[2018-07-28] MEDS: K and/or MAG REPLACEMENT MC SCH (07:04)
[2018-07-28] MEDS: potassium Cl 20 mEq SR tablet PO SCH ×2 (07:04→20:00)
[2018-07-28] MEDS: insulin glargine (Lantus) pen - multi-dose SQ SCH ×2 (08:00→20:49)
[2018-07-28 08:04] LABS: TOTAL CELLS COUNTED 100
[2018-07-28 08:08] LABS: ANISOCYTOSIS 1+; PLATELET ESTIMATE NORMAL
[2018-07-28 08:09] LABS: HYPOCHROMASIA 1+; POLYCHROMASIA FEW
[2018-07-28 08:10] LABS: LARGE PLATELETS FEW; SCHISTOCYTES FEW
[2018-07-28] MEDS: pantoprazole 40mg Tablet.DR PO SCH (08:32)
[2018-07-28] MEDS: citalopram 20mg tablet PO SCH (08:32)
[2018-07-28] MEDS: docusate sod 100mg capsule PO SCH ×2 (08:33→20:42)
[2018-07-28] MEDS: amiodarone 200mg tablet PO SCH ×2 (08:33→20:42)
[2018-07-28] MEDS: aspirin 325mg tablet, delayed-release (Ecotrin) PO SCH (08:33)
[2018-07-28] MEDS: metoprolol tartrate 50mg tablet PO SCH ×2 (08:34→20:44)
[2018-07-28] MEDS: atorvastatin 20mg tablet PO SCH (08:35)
[2018-07-28] MEDS: HYDROcodone/acetaminophen 10/325mg tab PO PRN ×3 (08:40→21:10)
[2018-07-28 11:00] VITALS: BP 120/44
[2018-07-28] MEDS: insulin Lispro (HumaLOG) vial - multi-dose SQ SCH ×2 (13:34→18:53)
[2018-07-28 15:00] VITALS: BP 104/60
--- NOTE | 2018-07-28 15:50 | NUR ---
Reassessment: Documented PO intake 7-100% on CHO controlled diet meeting nutrient needs. Pt seen at bedside states he sees a DM q 2-3 months, takes his DM eds per rx, and checks his BG levels every morning fasting with resulting numbers 250-350. Pt states he doesn't follow any special DM diet at home. Pt given written and verbal post CABG and DM education with referral to outpatient DM class and RD contact information. Pt endorses a good appetite and denies any food allergies, chewing/swallowing difficulties, or constipation/diarrhea. LBM 07/28, although pt states it was a hard BM and requests prunes with dinner, d/w dietary. D/w patient the importance of staying hydrated to help with bowel regularity. Pt requests chopped foods and double protein TID, d/w dietary. Will continue to follow. Recommend: 1. Continue carb controlled diet 2. Double protein TID 3. Chop food TID 4. Continue bowel care 5. Weight per rx Addendum: 07/28/18 at [address] Amended: Links added.
[2018-07-28 18:00] VITALS: BP 104/48
--- NOTE | 2018-07-28 18:15 | NUR ---
Orienteer documentation: I have reviewed and agree with all interventions, assessments performed and documented by Marlene SCHWARTZ.
--- NOTE | 2018-07-28 18:30 | NUR ---
Problems reprioritized. Patient report given, questions answered & plan of care reviewed with EFREN Hein.
[2018-07-28 23:00] VITALS: BP 104/56
[2018-07-29] MEDS ORDERED: dextrose ORAL solution 15 GM/59 ML bottle PO PRN ×2 (00:50)
[2018-07-29] MEDS ORDERED: dextrose 50%-water 50ml dispensing syringe IV PRN ×2 (00:50)
[2018-07-29] MEDS: HYDROcodone/acetaminophen 10/325mg tab PO PRN ×3 (01:40→14:05)
[2018-07-29 02:00] VITALS: BP 103/52
[2018-07-29 05:16] LABS: BASOPHILS % (AUTO) 0.3 % (0-1); EOSINOPHILS # (AUTO) 0.3 X10'3 (0-0.9); EOSINOPHILS % (AUTO) 2.2 % (0-6); HEMATOCRIT 36.5 % (42.0-52.0); HEMOGLOBIN 11.7 g/dl (14.0-17.9); LYMPHOCYTES # (AUTO) 3.2 X10'3 (1.1-4.8); MEAN CORPUSCULAR HEMOGLOBIN 29.5 PG (27.0-31.0); MEAN CORPUSCULAR HGB CONC 32.1 % (33.0-36.5); MEAN PLATELET VOLUME 10.1 FL (7.4-10.4); MONOCYTES % (AUTO) 19.7 % (2-12); NEUTROPHILS # (AUTO) 8.7 X10'3 (1.8-7.7); NEUTROPHILS % (AUTO) 56.8 % (42-75); PLATELET COUNT 237 X10'3 (140-440); RED BLOOD COUNT 3.97 X10'6 (4.70-6.10); RED CELL DISTRIBUTION WIDTH 15.6 % (11.5-14.5); WHITE BLOOD COUNT 15.4 X10'3 (4.5-11.0)
[2018-07-29 05:38] LABS: ANISOCYTOSIS 1+; PLATELET ESTIMATE NORMAL; POLYCHROMASIA FEW; TOTAL CELLS COUNTED 100
[2018-07-29 05:50] LABS: ALBUMIN 2.8 G/DL (3.4-5.0); ANION GAP 5 (8-16); BLOOD UREA NITROGEN 18 MG/DL (7-18); BUN/CREATININE RATIO 22.2 (5.4-32.0); CHLORIDE 100 MMOL/L (99-107); CREATININE 0.81 MG/DL (0.60-1.10); GLUCOSE 126 MG/DL (70-104); MAGNESIUM 1.9 MG/DL (1.5-2.4); POTASSIUM 4.7 MMOL/L (3.5-5.1); SODIUM 139 MMOL/L (135-145); eGFR > 90 ML/MIN
[2018-07-29 06:00] VITALS: BP 141/57
[2018-07-29] MEDS: potassium Cl 20 mEq SR tablet PO SCH (07:13)
[2018-07-29] MEDS: magnesium Cl slow-release 64mg tablet PO SCH (07:13)
[2018-07-29] MEDS: amiodarone 200mg tablet PO SCH (07:13)
[2018-07-29] MEDS: docusate sod 100mg capsule PO SCH (07:13)
[2018-07-29] MEDS: aspirin 325mg tablet, delayed-release (Ecotrin) PO SCH (07:13)
[2018-07-29] MEDS: atorvastatin 20mg tablet PO SCH (07:13)
[2018-07-29] MEDS: citalopram 20mg tablet PO SCH (07:13)
[2018-07-29] MEDS: metoprolol tartrate 50mg tablet PO SCH (07:14)
[2018-07-29] MEDS: pantoprazole 40mg Tablet.DR PO SCH (07:14)
[2018-07-29] MEDS: insulin glargine (Lantus) pen - multi-dose SQ SCH (07:20)
[2018-07-29] MEDS: K and/or MAG REPLACEMENT MC SCH (08:00)
[2018-07-29 11:45] VITALS: BP 100/46
[2018-07-29] MEDS: insulin Lispro (HumaLOG) vial - multi-dose SQ SCH (14:21)
--- NOTE | 2018-07-29 14:59 | NUR ---
pt report called to receiving facility. Pt IV removed, tip intact. Pt off monitor. Pt assisted to and will transfer via [facility].
== END 2018-07-29 14:55 | DRG 219 ==
LOC: PAS IN 05:09 → EDSTATUS 07:30 → ICU 2S 10:52 → MED 3N 07-27 13:10
PROVIDERS: ADMIT Thoracic Surgery (Cardiothoracic Vascular Surgery); ATTEND Thoracic Surgery (Cardiothoracic Vascular Surgery)
PROC: 02RF08Z Replacement of Aortic Valve with Zooplastic Tissue, Open Approach (ICD-10-PCS; 2018-07-24)
PROC: 06BQ4ZZ Excision of Left Saphenous Vein, Percutaneous Endoscopic Approach (ICD-10-PCS; 2018-07-24)
PROC: 4A133B3 Monitoring of Arterial Pressure, Pulmonary, Percutaneous Approach (ICD-10-PCS; 2018-07-24)
PROC: 02HQ32Z Insertion of Monitoring Device into Right Pulmonary Artery, Percutaneous Approach (ICD-10-PCS; 2018-07-24)
PROC: 02HV33Z Insertion of Infusion Device into Superior Vena Cava, Percutaneous Approach (ICD-10-PCS; 2018-07-24)
PROC: B548ZZA Ultrasonography of Superior Vena Cava, Guidance (ICD-10-PCS; 2018-07-24)
PROC: B24BZZ4 Ultrasonography of Heart with Aorta, Transesophageal (ICD-10-PCS; 2018-07-24)
PROC: 02L70CK Occlusion of Left Atrial Appendage with Extraluminal Device, Open Approach (ICD-10-PCS; 2018-07-24)
PROC: 5A1221Z Performance of Cardiac Output, Continuous (ICD-10-PCS; 2018-07-24)
PROC: 021009W Bypass Coronary Artery, One Artery from Aorta with Autologous Venous Tissue, Open Approach (ICD-10-PCS; principal; 2018-07-24 06:50)
DX: I35.0 Nonrheumatic aortic (valve) stenosis (principal); I50.41 Acute combined systolic (congestive) and diastolic (congestive) heart failure; Z68.41 Body mass index [BMI] 40.0-44.9, adult; I48.92 Unspecified atrial flutter; E11.65 Type 2 diabetes mellitus with hyperglycemia; E78.5 Hyperlipidemia, unspecified; I11.0 Hypertensive heart disease with heart failure; E66.01 Morbid (severe) obesity due to excess calories; F12.90 Cannabis use, unspecified, uncomplicated; R00.1 Bradycardia, unspecified; Z60.2 Problems related to living alone; I25.10 Atherosclerotic heart disease of native coronary artery without angina pectoris; I48.0 Paroxysmal atrial fibrillation; Z90.81 Acquired absence of spleen; Z95.5 Presence of coronary angioplasty implant and graft; Z87.891 Personal history of nicotine dependence; Z80.3 Family history of malignant neoplasm of breast; Z82.5 Family history of asthma and other chronic lower respiratory diseases
CPT/HCPCS: 36415; 36600; 71045; 71046; 80048; 80053; 80061; 81001; 82330; 82435; 82565; 82803; 82947; 82948; 83036; 83735; 84100; 84132; 84295; 85018; 85025; 85347; 85384; 85576; 85610; 85730; 86885; 86900; 86901; 86920; 87070; 88300; 93005; 93312; 93325; 93880; 93971; 94060; 94668; 94760; 97116; 97162; 97530; A6258; A6402; A6449; A7000; A7048; C1751; C9113; G0378; J0282; J0690; J1644; J1815; J1940; J2001; J2060; J2150; J2250; J2270; J2370; J2440; J2720; J2930; J3010; J3370; J3475; J3480; J3490; J7030; J7120; P9045

== ENCOUNTER 2019-06-19 05:06 | Day surgery (SDC) | payer MEDICARE ==
[2019-06-11 16:36] LABS: CLARITY,URINE CLEAR (Clear); COLOR,URINE STRAW (Yellow); GLUCOSE, URINE >=1000 mg/dl (Neg); KETONES,URINE NEGATIVE (Neg); LEUKOCYTE ESTERASE ,URINE NEGATIVE (Neg); NITRITES, URINE NEGATIVE (Neg); OCCULT BLOOD,URINE NEGATIVE (Neg); PH,URINE 5.5 (4.8-8.0); PROTEIN,URINE NEGATIVE (Neg); UROBILINOGEN,URINE 0.2 E.U/dL (0.2-1.0)
[2019-06-11 16:39] LABS: BASOPHILS # (AUTO) 0.2 X10'3 (0-0.2); BASOPHILS % (AUTO) 1.3 % (0-1); EOSINOPHILS # (AUTO) 0.2 X10'3 (0-0.9); EOSINOPHILS % (AUTO) 1.3 % (0-6); LYMPHOCYTES # (AUTO) 3.4 X10'3 (1.1-4.8); LYMPHOCYTES % (AUTO) 29.2 % (21-51); MEAN CORPUSCULAR HEMOGLOBIN 30.3 PG (27.0-31.0); MEAN CORPUSCULAR HGB CONC 33.3 g/dL (33.0-36.5); MEAN CORPUSCULAR VOLUME 90.8 FL (78-98); MEAN PLATELET VOLUME 9.7 FL (7.4-10.4); MONOCYTES # (AUTO) 1.8 X10'3 (0-0.9); MONOCYTES % (AUTO) 15.5 % (2-12); NEUTROPHILS # (AUTO) 6.1 X10'3 (1.8-7.7); NEUTROPHILS % (AUTO) 52.7 % (42-75); PRE OP HEMATOCRIT 47.1 % (42.0-52.0); PRE OP HEMOGLOBIN 15.7 g/dL (14.0-17.9); PRE OP PLATELET COUNT 327 X10'3 (140-440); RED BLOOD COUNT 5.19 X10'6 (4.70-6.10); RED CELL DISTRIBUTION WIDTH 15.9 % (11.5-14.5)
[2019-06-11 16:43] LABS: UA COLLECTION TYPE CLN CATCH MIDSTREAM
[2019-06-11 16:48] LABS: PRE OP INR 1.1 INR; PRE OP PROTIME 10.8 SECONDS (9.0-12.0)
[2019-06-11 16:50] LABS: ALBUMIN 3.6 G/DL (3.4-5.0); ALBUMIN/GLOBULIN RATIO 0.8 (1.1-1.5); ALKALINE PHOSPHATASE 86 IU/L (46-116); BLOOD UREA NITROGEN 15 MG/DL (7-18); BUN/CREATININE RATIO 22.4 (5.4-32.0); CALCIUM 9.5 MG/DL (8.5-10.1); CHLORIDE 102 MMOL/L (99-107); CREATININE 0.67 MG/DL (0.60-1.10); PRE OP ALT 30 U/L (30-65); PRE OP ANION GAP 8 (8-16); PRE OP AST 17 U/L (10-37); PRE OP BILIRUB, TOTAL 1.1 MG/DL (0.0-1.0); PRE OP GLUCOSE 183 MG/DL (70-104); PRE OP POTASSIUM 4.3 MMOL/L (3.4-5.1); PRE OP SODIUM 138 MMOL/L (135-145); TOTAL CARBON DIOXIDE 28.5 MMOL/L (24-32); TOTAL PROTEIN 8.2 G/DL (6.4-8.2); eGFR > 90 ML/MIN
[2019-06-11 16:53] LABS: BACTERIA,URINE NONE SEEN /HPF (Neg); RBC,URINE 0-2 /HPF (0-2); WBC,URINE 0-4 /HPF (0-4)
[2019-06-11 16:54] LABS: MUCUS STRANDS FEW /LPF (Neg); SPERM FEW /HPF (NEGATIVE); SQUAMOUS EPITHELIAL CELL,UR NONE SEEN /LPF (FEW)
[2019-06-19] VITALS (10 sets, daily range): BP systolic 112–153; BP diastolic 56–101
[~2019-06-19] VITALS: Ht 162.6 cm; Wt 102.5 kg
[~2019-06-19 05:06] MED LIST changes: +APIX5TAB3 PO; +ASPI-611 PO; +CANA300T PO; -CLOP75TA33 PO; -INSU100I31 SQ; +INSU100V37 SQ; +IRON1CAP34 PO; -LIDOcaine 1% (10mg/ml) 2ml vial ONE; +METF500T20 PO; -METF500T7 PO; -METO50TA17 PO; -PIOG45TA65 PO
[2019-06-19] MEDS ORDERED: famotidine 10mg tablet PO ONE (05:30)
[2019-06-19] MEDS ORDERED: cefazolin/dext.iso 2gm/100ml 100 ML IV ONE (05:30)
[2019-06-19] MEDS ORDERED: DOCUMENT DATE & TIME OF BETA-BLOCKER PO ONE (05:30)
[2019-06-19] MEDS ORDERED: LIDOcaine 1% (10mg/ml) 2ml vial ONE (05:57)
[2019-06-19] MEDS ORDERED: BUPIVAcaine/PF 2.5 mg/ml (0.25%) 30ml vial ONE (06:47)
[2019-06-19] MEDS ORDERED: LIDOcaine 1% 30ml preserv. free vial ONE ×2 (06:47→09:12)
[2019-06-19] MEDS ORDERED: insulin regular, human 10 units/0.1 ml syringe IV ONE (08:25)
[2019-06-19] MEDS ORDERED: fentaNYL/PF 50MCG/1 ML 2ML syringe ONE (08:42)
[2019-06-19] MEDS ORDERED: MIDAZolam 5mg/5ml vial ONE (08:42)
[2019-06-19] MEDS ORDERED: ringers solution, lacted 1,000 ML IV SCH (08:46)
[2019-06-19] MEDS ORDERED: meperidine/PF 25mg/ml syringe IV PRN ×3 (08:50)
[2019-06-19] MEDS ORDERED: ondansetron/PF 4mg/2ml inj IV PRN (08:50)
[2019-06-19] MEDS ORDERED: proCHLORperazine 10 MG/2 ml inj IV PRN (08:50)
[2019-06-19] MEDS ORDERED: morphine 4 MG/ML inj SYRINge IV PRN ×2 (08:50)
[2019-06-19] MEDS ORDERED: LIDOcaine 2% (20mg/ml) 5ml vial ONE (09:15)
[2019-06-19] MEDS ORDERED: propofol inj 20 ML IV ONE (09:15)
--- NOTE | 2019-06-19 09:25 | NUR ---
Received from OR via [facility], accompanied by Anesthesiologist Dr. Espinal and report given by Anesthesiolgist. VSS as charted, p2 sat 92% on 2l nc. Dressing to posterior lower head, gauze with foam dressing CDI. 22 GAUGE PIV TO RT FA, INFUSING LR ORDERED. WILL CONTINUE TO MONITOR.
--- NOTE | 2019-06-19 09:52 | NUR ---
POST-OP BS 198, DR. PATIÑO MADE AWARE.
--- NOTE | 2019-06-19 10:55 | NUR ---
I HAVE REVIEWED D/C INSTRUCTIONS WITH PATIENT AND FAMILY AND THEY HAVE VERBALIZED UNDERSTANDING. PATIENT D/C HOME WITH ALL BELONGINGS AND FAMILY GAVE TRANSPORT HOME.
== END 2019-06-19 10:55 | disposition home or self-care (01) ==
LOC: PAS 05:06
PROVIDERS: ATTEND Surgery
DX: L72.3 Sebaceous cyst (principal); I25.10 Atherosclerotic heart disease of native coronary artery without angina pectoris; E78.5 Hyperlipidemia, unspecified; I10 Essential (primary) hypertension; I35.0 Nonrheumatic aortic (valve) stenosis; E11.51 Type 2 diabetes mellitus with diabetic peripheral angiopathy without gangrene; E11.9 Type 2 diabetes mellitus without complications; E66.01 Morbid (severe) obesity due to excess calories; Z68.38 Body mass index [BMI] 38.0-38.9, adult; Z95.5 Presence of coronary angioplasty implant and graft; Z90.81 Acquired absence of spleen; Z79.84 Long term (current) use of oral hypoglycemic drugs; Z79.899 Other long term (current) drug therapy; Z79.01 Long term (current) use of anticoagulants
CPT/HCPCS: 21012; 36415; 80053; 81001; 82948; 85025; 85610; 85730; 93005; J1815; J2001; J2250; J2704; J3010; J3490; A4215; A4618; A6449; A7000; J7120

== ENCOUNTER 2021-05-12 15:25 | Emergency (ER) | payer MEDICARE ==
[~2021-05-12] VITALS: Ht 162.6 cm; Wt 91.4 kg
[~2021-05-12 15:25] MED LIST changes: -ESCI20TA38 PO; +ESCI20TA39 PO; +METF-900 PO; -METF500T20 PO; +POTA-197 PO; -POTA20TA10 PO; -ringers solution, lacted 1,000 ML IV SCH
[2021-05-12 15:55] VITALS: BP 122/86
[2021-05-12 17:23] LABS: BASOPHILS # (AUTO) 0.1 X10'3 (0-0.2); BASOPHILS % (AUTO) 0.5 % (0-1); EOSINOPHILS % (AUTO) 0 % (0-6); HEMATOCRIT 52.9 % (42.0-52.0); HEMOGLOBIN 17.5 g/dl (14.0-17.9); LYMPHOCYTES # (AUTO) 1.5 X10'3 (1.1-4.8); LYMPHOCYTES % (AUTO) 13.5 % (21-51); MEAN CORPUSCULAR HEMOGLOBIN 28.2 PG (27.0-31.0); MEAN CORPUSCULAR HGB CONC 33.1 g/dL (33.0-36.5); MEAN CORPUSCULAR VOLUME 85.1 FL (78-98); MEAN PLATELET VOLUME 11.4 FL (7.4-10.4); MONOCYTES # (AUTO) 1.1 X10'3 (0-0.9); MONOCYTES % (AUTO) 10.2 % (2-12); NEUTROPHILS # (AUTO) 8.3 X10'3 (1.8-7.7); NEUTROPHILS % (AUTO) 75.8 % (42-75); PLATELET COUNT 278 X10'3 (140-440); RED BLOOD COUNT 6.21 X10'6 (4.70-6.10); RED CELL DISTRIBUTION WIDTH 17.2 % (11.5-14.5); WHITE BLOOD COUNT 10.9 X10'3 (4.5-11.0)
[2021-05-12 17:34] LABS: ALANINE AMINOTRANSFERASE 27 U/L (12-78); ALBUMIN 3.7 G/DL (3.4-5.0); ALBUMIN/GLOBULIN RATIO 0.7 (1.1-1.5); ALKALINE PHOSPHATASE 117 IU/L (46-116); ANION GAP 17 (8-16); ASPARTATE AMINO TRANSFERASE 17 U/L (10-37); BILIRUBIN,TOTAL 1.2 MG/DL (0.1-1.0); BLOOD UREA NITROGEN 21 MG/DL (7-18); BUN/CREATININE RATIO 22.3 (5.4-32.0); CALCIUM 9.8 MG/DL (8.5-10.1); CHLORIDE 95 MMOL/L (99-107); CREATININE 0.94 MG/DL (0.60-1.10); LIPASE < 50 U/L (73-393); MAGNESIUM 2.1 MG/DL (1.5-2.4); POTASSIUM 4.3 MMOL/L (3.5-5.1); SODIUM 138 MMOL/L (135-145); TOTAL CARBON DIOXIDE 25.6 MMOL/L (24-32); TOTAL PROTEIN 9.2 G/DL (6.4-8.2); eGFR 80 ML/MIN
[2021-05-12 17:42] LABS: GLUCOSE 464 MG/DL (70-104)
[2021-05-12] MEDS ORDERED: normal saline 1000ML IV soln IVB ONE ×2 (20:40→21:15)
[2021-05-12] MEDS ORDERED: ondansetron/PF 4mg/2ml inj IV ONE (20:40)
[2021-05-12 21:02] LABS: CLARITY,URINE CLEAR (Clear); COLOR,URINE YELLOW (Yellow); GLUCOSE, URINE >=1000 mg/dl (Neg); PROTEIN,URINE 100 mg/dl (Neg); UA COLLECTION TYPE NON-SPECIFIED
[2021-05-12 21:03] LABS: KETONES,URINE 80 mg/dl (Neg); LEUKOCYTE ESTERASE ,URINE NEGATIVE (Neg); NITRITES, URINE NEGATIVE (Neg); OCCULT BLOOD,URINE NEGATIVE (Neg); UROBILINOGEN,URINE 0.2 E.U/dL (0.2-1.0)
[2021-05-12 21:13] LABS: CELLULAR CAST 0-4 /LPF (NEGATIVE)
[2021-05-12 21:14] LABS: BACTERIA,URINE NONE SEEN /HPF (Neg); MUCUS STRANDS FEW /LPF (Neg); RBC,URINE 0-2 /HPF (0-2); SQUAMOUS EPITHELIAL CELL,UR FEW /LPF (FEW); WBC,URINE 0-4 /HPF (0-4)
[2021-05-12] MEDS ORDERED: insulin regular, human U-100 3ml vial - multi-dose IV ONE (21:15)
[2021-05-12] MEDS ORDERED: ONDA4TAB6 PO (21:52)
[2021-05-12] MEDS ORDERED: acetaminophen 325mg tablet PO ONE (22:50)
== END 2021-05-13 00:41 | disposition home or self-care (01) ==
LOC: ER 15:25
DX: E11.65 Type 2 diabetes mellitus with hyperglycemia (principal); R00.0 Tachycardia, unspecified; I25.10 Atherosclerotic heart disease of native coronary artery without angina pectoris; I25.2 Old myocardial infarction; R11.2 Nausea with vomiting, unspecified; Z98.890 Other specified postprocedural states; Z79.82 Long term (current) use of aspirin; Z79.4 Long term (current) use of insulin; Z79.899 Other long term (current) drug therapy
CPT/HCPCS: 36415; 80053; 81001; 82948; 83690; 83735; 85025; 96361; 96374; 96375; 99284; J2405; J7030; J1815

== ENCOUNTER 2022-01-13 11:21 | Emergency (ER) | payer BC, MEDICARE ==
[~2022-01-13] VITALS: Ht 162.6 cm; Wt 93.2 kg
[~2022-01-13 11:21] MED LIST changes: +ONDA4TAB6 PO
[2022-01-13 12:14] LABS: BASOPHILS # (AUTO) 0.1 X10'3 (0-0.2); EOSINOPHILS # (AUTO) 0.1 X10'3 (0-0.9); EOSINOPHILS % (AUTO) 0.8 % (0-6); HEMOGLOBIN 14.5 g/dl (14.0-17.9); LYMPHOCYTES # (AUTO) 1.4 X10'3 (1.1-4.8); LYMPHOCYTES % (AUTO) 14.2 % (21-51); MEAN CORPUSCULAR HGB CONC 33.1 g/dL (33.0-36.5); MEAN CORPUSCULAR VOLUME 84.7 FL (78-98); MEAN PLATELET VOLUME 10.2 FL (7.4-10.4); MONOCYTES % (AUTO) 20.2 % (2-12); NEUTROPHILS # (AUTO) 6.2 X10'3 (1.8-7.7); NEUTROPHILS % (AUTO) 63.8 % (42-75); PLATELET COUNT 302 X10'3 (140-440); RED BLOOD COUNT 5.19 X10'6 (4.70-6.10); RED CELL DISTRIBUTION WIDTH 17.8 % (11.5-14.5); WHITE BLOOD COUNT 9.8 X10'3 (4.5-11.0)
[2022-01-13 12:33] LABS: ALANINE AMINOTRANSFERASE 19 U/L (12-78); ALBUMIN 2.7 G/DL (3.4-5.0); ALBUMIN/GLOBULIN RATIO 0.6 (1.1-1.5); ALKALINE PHOSPHATASE 202 IU/L (46-116); ANION GAP 8 (8-16); BILIRUBIN,TOTAL 0.6 MG/DL (0.1-1.0); BLOOD UREA NITROGEN 10 MG/DL (7-18); BUN/CREATININE RATIO 15.4 (5.4-32.0); CALCIUM 8.9 MG/DL (8.5-10.1); CHLORIDE 98 MMOL/L (99-107); CREATININE 0.65 MG/DL (0.60-1.10); SODIUM 132 MMOL/L (135-145); TOTAL CARBON DIOXIDE 25.9 MMOL/L (24-32); TOTAL PROTEIN 7.6 G/DL (6.4-8.2); eGFR > 90 ML/MIN
[2022-01-13 12:34] LABS: ASPARTATE AMINO TRANSFERASE 26 U/L (10-37); POTASSIUM 4.7 MMOL/L (3.5-5.1)
[2022-01-13 12:36] LABS: GLUCOSE 488 MG/DL (70-104)
[2022-01-13 12:44] LABS: PLATELET ESTIMATE NORMAL; TOTAL CELLS COUNTED 100
[2022-01-13 12:45] LABS: ANISOCYTOSIS 1+
[2022-01-13] MEDS ORDERED: insulin regular, human 10 units/0.1 ml syringe IV ONE (12:45)
[2022-01-13] MEDS ORDERED: normal saline 1000ML IV soln IVB ONE (13:00)
--- NOTE | 2022-01-13 13:08 | NUR ---
Received from EMS, awake, alert and orientedx4. Now on room air, no form of distress, Dyspniec on exertion. Sitting at side of the stretcher. BG elevated, Humulin given as ordered. Ivf started. Monitoring ongoing
[2022-01-13] MEDS ORDERED: insulin regular, human 10 units/0.1 ml syringe SQ ONE (14:00)
[2022-01-13 14:28] VITALS: BP 136/99
== END 2022-01-13 14:29 | disposition home or self-care (01) ==
LOC: ER 11:21
DX: E11.65 Type 2 diabetes mellitus with hyperglycemia (principal)
CPT/HCPCS: 36415; 71045; 80053; 82948; 83880; 84484; 85007; 85025; 93005; 96361; 96374; 99285; J1815; J7030; 96372

== ENCOUNTER 2022-03-26 11:22 | Emergency (ER) | payer BC, MEDICAID ==
[~2022-03-26] VITALS: Ht 162.6 cm; Wt 82.3 kg
[~2022-03-26 11:22] MED LIST changes: -APIX5TAB3 PO; -ASPI-611 PO; -ATOR40TA PO; +ATOR40TA72 PO; -CANA300T PO; +DILT-88 PO; -FENO160T37 PO; +FURO-149 PO; -FURO-150 PO; -INSU100V37 SQ; -IRON1CAP34 PO; +LINA5TAB4 PO; +METF-438 PO; -METF-900 PO; +ONDA-103 PO; -ONDA4TAB6 PO; -PANT-47 PO; +PANT40TA54 PO; -POTA-197 PO; -SOTA80TA73 PO; +TRAM50TA2 PO
[2022-03-26] MEDS ORDERED: morphine 2 MG/ML inj. syringe IV PRN (13:20)
[2022-03-26 13:24] LABS: EOSINOPHILS % (AUTO) 0.1 % (0-6); LYMPHOCYTES # (AUTO) 1.5 X10'3 (1.1-4.8); MEAN CORPUSCULAR HEMOGLOBIN 27.8 PG (27.0-31.0); MONOCYTES # (AUTO) 2.7 X10'3 (0-0.9); WHITE BLOOD COUNT 7.3 X10'3 (4.5-11.0)
[2022-03-26 13:26] LABS: BASOPHILS % (AUTO) 0.4 % (0-1); HEMATOCRIT 40.2 % (42.0-52.0); HEMOGLOBIN 13.2 g/dl (14.0-17.9); LYMPHOCYTES % (AUTO) 21.2 % (21-51); MEAN CORPUSCULAR HGB CONC 32.8 g/dL (33.0-36.5); MEAN CORPUSCULAR VOLUME 84.9 FL (78-98); MEAN PLATELET VOLUME 10.8 FL (7.4-10.4); NEUTROPHILS % (AUTO) 41.3 % (42-75); PLATELET COUNT 321 X10'3 (140-440); RED BLOOD COUNT 4.74 X10'6 (4.70-6.10); RED CELL DISTRIBUTION WIDTH 17.7 % (11.5-14.5)
[2022-03-26 13:34] LABS: ALANINE AMINOTRANSFERASE 21 U/L (12-78); ALBUMIN 2.7 G/DL (3.4-5.0); ALBUMIN/GLOBULIN RATIO 0.7 (1.1-1.5); ALKALINE PHOSPHATASE 327 IU/L (46-116); ANION GAP 6 (8-16); ASPARTATE AMINO TRANSFERASE 16 U/L (10-37); BILIRUBIN,TOTAL 0.9 MG/DL (0.1-1.0); BLOOD UREA NITROGEN 10 MG/DL (7-18); CALCIUM 8.9 MG/DL (8.5-10.1); CHLORIDE 95 MMOL/L (99-107); CREATININE 0.77 MG/DL (0.60-1.10); GLUCOSE 334 MG/DL (70-104); POTASSIUM 3.6 MMOL/L (3.5-5.1); SODIUM 135 MMOL/L (135-145); TOTAL CARBON DIOXIDE 34.4 MMOL/L (24-32); TOTAL PROTEIN 6.8 G/DL (6.4-8.2); eGFR > 90 ML/MIN
[2022-03-26 13:37] LABS: LIPASE < 50 U/L (73-393)
[2022-03-26 14:37] LABS: ANISOCYTOSIS 1+; PLATELET ESTIMATE NORMAL; TARGET CELLS 1+; TOTAL CELLS COUNTED 100
[2022-03-26 15:14] LABS: CLARITY,URINE CLOUDY (Clear); GLUCOSE, URINE 250 mg/dl (Neg); KETONES,URINE NEGATIVE (Neg); LEUKOCYTE ESTERASE ,URINE TRACE (Neg); NITRITES, URINE NEGATIVE (Neg); OCCULT BLOOD,URINE NEGATIVE (Neg); PH,URINE 7.5 (4.8-8.0); PROTEIN,URINE TRACE mg/dl (Neg)
[2022-03-26 15:24] LABS: COLOR,URINE DARK YELLOW (Yellow); UA COLLECTION TYPE CLN CATCH MIDSTREAM
[2022-03-26 15:27] LABS: BACTERIA,URINE 4+ /HPF (Neg); MUCUS STRANDS NONE SEEN /LPF (Neg); RBC,URINE 0-2 /HPF (0-2); SQUAMOUS EPITHELIAL CELL,UR NONE SEEN /LPF (FEW); WBC CLUMPS,URINE FEW /HPF (NEGATIVE); WBC,URINE 20-30 /HPF (0-4)
[2022-03-26] MEDS ORDERED: nitrofuran monohydrate/nitrofuran macrocrysal 100 MG (MacroBID) capsule PO ONE (15:40)
[2022-03-26] MEDS ORDERED: HYDR-3965 PO (15:47)
[2022-03-26] MEDS ORDERED: NITR100C6 PO (15:47)
[2022-03-26 16:09] VITALS: BP 102/59
== END 2022-03-26 16:13 | disposition home or self-care (01) ==
LOC: ER 11:23
DX: R07.81 Pleurodynia (principal); N39.0 Urinary tract infection, site not specified; C85.90 Non-Hodgkin lymphoma, unspecified, unspecified site; I50.9 Heart failure, unspecified; J44.9 Chronic obstructive pulmonary disease, unspecified; E11.9 Type 2 diabetes mellitus without complications
CPT/HCPCS: 36415; 71045; 80053; 81001; 83690; 84484; 85007; 85025; 87077; 87088; 87186; 93005; 96374; 99285; J2270; A4615